=== PATIENT | male | born 1985 | race Caucasian/White ===

== ENCOUNTER 2016-10-13 16:39 | Emergency (ER) | payer OTHER ==
[~2016-10-13] VITALS: Ht 180.3 cm; Wt 162.7 kg
[~2016-10-13 16:39] MED LIST: ACCUNEB1.25 MG/3 IH; ADVAIR 100/501 DISK IH; ASPIR 8181 M1 PO; CHERATUSSIN AC473 ML PO; DICLOFENAC SOD100 MG PO; ENDOCET 5-3251 EACH PO; FLEXERIL10 MG PO; INDOCIN25 MG PO; KEFLEX500 MG PO; LIDODERM 5% P1 PATCH TD; MOTRIN800 MG PO; NAPROSYN500 MG PO; NORCO 7.5/321 TABLET PO; PREDNISONE10 M1 PO; TRAMADOL HCL50 MG PO; ULTRAM50 MG PO; VALIUM5 MG PO; VENTOLIN HFA18 GM IH; VIBRAMYCIN100 MG PO; ZESTRIL,PRINIVIL5 MG PO; ZITHROMAX Z-PA250 MG PO; ZITHROMAX250 MG PO; ZOCOR20 MG PO
[2016-10-13 18:16] LABS: HEMATOCRIT 42.5 % (38.0-50.0); MCH 30.4 PG (29.0-34.0); MCHC 33.6 G/DL (30.0-36.0); MCV 90.2 FL (86-99); MEAN PLAT.VOLUME 10.1 uM^3 (9.0-12.4); PLATELET COUNT 189 K/uL (156-360); RBC DIS.WIDTH-CV 14.1 % (11.8-14.6); RBC DIS.WIDTH-SD 45.3 % (39-53); RED BLOOD COUNT 4.71 M/uL (4.00-5.50); WHITE BLOOD COUNT 10.5 K/uL (4.1-10.2)
[2016-10-13 18:24] LABS: CHLORIDE 104 mEq/L (99-109); POTASSIUM 4.2 mEq/L (3.7-5.4); SODIUM 139 mEq/L (136-147)
[2016-10-13 18:26] LABS: GLUCOSE 101 mg/dL (70-99)
[2016-10-13 18:27] LABS: ANION GAP 11 MEQ/L (2-14)
[2016-10-13 18:29] LABS: ALKALINE PHOSPHATASE 80 IU/L (3-129); TOTAL BILIRUBIN 0.2 mg/dL (0.0-1.0)
[2016-10-13 18:30] LABS: GFR ESTIMATE (CALCULATED) > 59 mL/min/
[2016-10-13] MEDS ORDERED: ZUBSOLV 5.7-1.1 EACH SL (18:30)
[2016-10-13 18:31] LABS: UREA NITROGEN (BUN) 11 mg/dL (9-23)
[2016-10-13 18:42] LABS: ADD MIUA? YES; BILIRUBIN NEGATIVE; BLOOD TRACE; COLOR YELLOW ((YELLOW)); GLUCOSE (STRIP) NEGATIVE; KETONES NEGATIVE; LEUKOCYTES NEGATIVE; NITRITE NEGATIVE; PROTEIN (STRIP) 30; SPECIFIC GRAVITY 1.024 (1.000-1.030)
[2016-10-13 18:56] LABS: TROP-I INTERPRETATION NEGATIVE; TROPONIN-I < 0.01 ng/mL (0.0-0.30)
[2016-10-13 19:08] LABS: BACTERIA NONE SEEN; CASTS NONE SEEN /LPF; CRYSTALS NONE SEEN; EPITHELIAL CELLS NONE SEEN; MUCUS NONE SEEN; RED BLOOD CELLS 0-5 /HPF (0-5); UCUL ADDED? NO; WHITE BLOOD CELLS NONE SEEN /HPF (0-5)
[2016-10-13 19:13] LABS: AMPHETAMINE NEGATIVE (500 ng/mL); BARBITURATES NEGATIVE (200 ng/mL); BENZODIAZEPINES NEGATIVE (150 ng/mL); COCAINE NEGATIVE (150 ng/mL); INTERNAL CONTROLS VALID? YES; METHADONE NEGATIVE (200 ng/mL); METHAMPHETAMINE NEGATIVE (500 ng/mL); OPIATES (MORPHINE) NEGATIVE (100 ng/mL); OXYCODONE NEGATIVE (100 ng/mL); PHENCYCLIDINE NEGATIVE (25 ng/mL); PROPOXYPHENE NEGATIVE (300 ng/mL); THC CANNABINOIDS PRESUMPTIVE POSITIVE (50 ng/mL); TRICYCLIC ANTIDEPRESSANTS NEGATIVE (300 ng/mL)
[2016-10-13 19:14] LABS: ADD MEDTOX COMMENT Y
[2016-10-13] MEDS ORDERED: VIBRAMYCIN100 MG PO (19:17)
[2016-10-13] MEDS ORDERED: ANTIVERT25 MG PO (19:17)
[2016-10-13 19:32] VITALS: BP 138/77
== END 2016-10-13 19:33 | disposition home or self-care (01) ==
LOC: EME 16:39
PROVIDERS: Nurse Practitioner Family
DX: J32.9 Chronic sinusitis, unspecified (principal); R42 Dizziness and giddiness; E78.5 Hyperlipidemia, unspecified; I10 Essential (primary) hypertension; G47.30 Sleep apnea, unspecified; F17.200 Nicotine dependence, unspecified, uncomplicated
CPT/HCPCS: 70450; 71020; 80053; 81003; 84484; 84999; 85027; 93005; 99281; 99284

== ENCOUNTER 2016-10-27 12:49 | Inpatient (IN) | payer OTHER ==
[~2016-10-27] VITALS: Ht 154.9 cm; Wt 167.0 kg
[~2016-10-27 12:49] MED LIST changes: +ANTIVERT25 MG PO; +ZUBSOLV 5.7-1.1 EACH SL
[2016-10-27 14:00] LABS: EOSINOPHIL (%) 1.8 % (0-5); EOSINOPHIL COUNT 0.2 K/uL (0-0.3); HEMATOCRIT 42.3 % (38.0-50.0); IMMATURE GRANULOCYTE (%) 0.3 % (0.0-0.7); IMMATURE GRANULOCYTE COUNT 0.3 K/uL; LYMPHOCYTE COUNT 2.5 K/uL (1.0-2.8); MCHC 33.6 G/DL (30.0-36.0); MCV 89.2 FL (86-99); MEAN PLAT.VOLUME 10.4 uM^3 (9.0-12.4); MONOCYTE (%) 4.3 % (3-12); MONOCYTE COUNT 0.4 K/uL (0-0.8); NEUTROPHIL (%) 68.9 % (45-76); PLATELET COUNT 226 K/uL (156-360); RBC DIS.WIDTH-CV 13.9 % (11.8-14.6); RBC DIS.WIDTH-SD 44.3 % (39-53); RED BLOOD COUNT 4.74 M/uL (4.00-5.50); WHITE BLOOD COUNT 10.1 K/uL (4.1-10.2)
[2016-10-27 14:12] LABS: CHLORIDE 102 mEq/L (99-109)
[2016-10-27 14:13] LABS: POTASSIUM 3.9 mEq/L (3.7-5.4); SODIUM 139 mEq/L (136-147)
[2016-10-27 14:15] LABS: GLUCOSE 114 mg/dL (70-99)
[2016-10-27 14:16] LABS: ANION GAP 6 MEQ/L (2-14)
[2016-10-27 14:17] LABS: TOTAL BILIRUBIN 0.3 mg/dL (0.0-1.0)
[2016-10-27 14:18] LABS: ALKALINE PHOSPHATASE 80 IU/L (3-129); GFR ESTIMATE (CALCULATED) > 59 mL/min/
[2016-10-27 14:20] LABS: UREA NITROGEN (BUN) 11 mg/dL (9-23)
[2016-10-27] MEDS ORDERED: KEFLEX500 MG PO (15:51)
[2016-10-27 23:00] VITALS: BP 139/71
[2016-10-28 07:22] LABS: EOSINOPHIL COUNT 0.2 K/uL (0-0.3); HEMATOCRIT 41.4 % (38.0-50.0); IMMATURE GRANULOCYTE (%) 0.3 % (0.0-0.7); LYMPHOCYTE COUNT 2.9 K/uL (1.0-2.8); MCHC 32.6 G/DL (30.0-36.0); MEAN PLAT.VOLUME 11.2 uM^3 (9.0-12.4); MONOCYTE (%) 5.4 % (3-12); MONOCYTE COUNT 0.4 K/uL (0-0.8); NEUTROPHIL (%) 53.6 % (45-76); NEUTROPHIL COUNT 4.1 K/uL (1.8-6.4); PLATELET COUNT 213 K/uL (156-360); RBC DIS.WIDTH-CV 14.1 % (11.8-14.6); RBC DIS.WIDTH-SD 47.7 % (39-53); WHITE BLOOD COUNT 7.7 K/uL (4.1-10.2)
[2016-10-28 07:42] VITALS: BP 118/62
[2016-10-28 07:45] LABS: ALKALINE PHOSPHATASE 71 IU/L (3-129); ANION GAP 7 MEQ/L (2-14); CHLORIDE 102 MEQ/L (99-109); GFR ESTIMATE (CALCULATED) > 59 mL/min/; GLUCOSE 87 mg/dL (70-99); POTASSIUM 4.2 MEQ/L (3.7-5.4); SAMPLE HEMOLYSIS CHECK 0; SAMPLE ICTERIC CHECK 0; SAMPLE LIPEMIA CHECK 0; SODIUM 140 MEQ/L (136-147); TOTAL BILIRUBIN 0.3 MG/DL (0.0-1.0); UREA NITROGEN (BUN) 13 mg/dL (9-23)
[2016-10-28 16:13] VITALS: BP 189/103
[2016-10-28 16:46] VITALS: BP 164/78
[2016-10-28 20:46] LABS: POINT-OF-CARE METER ID UU13113725
[2016-10-28 23:07] VITALS: BP 136/65
[2016-10-29 06:30] LABS: EOSINOPHIL (%) 2.4 % (0-5); EOSINOPHIL COUNT 0.2 K/uL (0-0.3); HEMATOCRIT 39.9 % (38.0-50.0); IMMATURE GRANULOCYTE (%) 0.2 % (0.0-0.7); LYMPHOCYTE COUNT 3.1 K/uL (1.0-2.8); MCH 29.7 PG (29.0-34.0); MCHC 33.1 G/DL (30.0-36.0); MCV 89.7 FL (86-99); MEAN PLAT.VOLUME 10.7 uM^3 (9.0-12.4); MONOCYTE (%) 6.5 % (3-12); MONOCYTE COUNT 0.5 K/uL (0-0.8); NEUTROPHIL (%) 52.3 % (45-76); NEUTROPHIL COUNT 4.2 K/uL (1.8-6.4); PLATELET COUNT 209 K/uL (156-360); RBC DIS.WIDTH-CV 13.9 % (11.8-14.6); RBC DIS.WIDTH-SD 45.9 % (39-53); RED BLOOD COUNT 4.45 M/uL (4.00-5.50)
[2016-10-29 06:55] LABS: ANION GAP 7 MEQ/L (2-14); CHLORIDE 105 MEQ/L (99-109); GFR ESTIMATE (CALCULATED) > 59 mL/min/; GLUCOSE 100 mg/dL (70-99); POTASSIUM 4.2 MEQ/L (3.7-5.4); SAMPLE HEMOLYSIS CHECK 0; SAMPLE ICTERIC CHECK 0; SAMPLE LIPEMIA CHECK 0; SODIUM 140 MEQ/L (136-147); UREA NITROGEN (BUN) 11 mg/dL (9-23)
[2016-10-29 09:00] VITALS: BP 130/65
[2016-10-29] MEDS ORDERED: DOXYCYCLINE HY100 M3 PO (13:11)
== END 2016-10-29 14:54 | disposition home or self-care (01) | DRG 603 ==
LOC: EME 12:49 → 5EAST 15:34 → EDOF 15:34 → 5EAST 16:44
PROVIDERS: Emergency Medicine; Nurse Practitioner Adult Health; Pediatrics; Physician Assistant
DX: L03.115 Cellulitis of right lower limb (principal); Z68.44 Body mass index [BMI] 60.0-69.9, adult; F11.20 Opioid dependence, uncomplicated; E66.01 Morbid (severe) obesity due to excess calories; F17.200 Nicotine dependence, unspecified, uncomplicated; I10 Essential (primary) hypertension; L03.116 Cellulitis of left lower limb; G47.30 Sleep apnea, unspecified
CPT/HCPCS: 80048; 80053; 80202; 82948; 83605; 85025; 87040; 93970; 99281; 99285; J0574; J0690; J1650; J1885; J2270; J3370; J7040